=== PATIENT | female | born 1990 | race Caucasian/White ===

== ENCOUNTER 2024-03-07 00:05 | Inpatient (IN) | payer MEDICAID ==
[2024-03-07 04:04] LABS: BASOPHILS PERCENT AUTO 0.1 % (0.0-1.0); HEMATOCRIT 33.3 % (37.0-47.0); HEMOGLOBIN 10.8 g/dL (12.0-16.0); MEAN CORPUSCULAR HEMOGLOBIN 29.3 pg (27.0-34.0); MEAN CORPUSCULAR HGB CONC 32.4 g/dL (33.0-35.0); MEAN CORPUSCULAR VOLUME 90.5 fL (80-100); MONOCYTES PERCENT AUTO 6.7 % (2-8); NEUTROPHILS PERCENT AUTO 70.2 % (42.2-75.2); PLATELET COUNT,PLT 191 10^3/uL (150-450); RED BLOOD CELL COUNT 3.68 10^6/uL (4.2-5.4)
[2024-03-07] MEDS: Misoprostol 25 MCG (1/4 of 100 MCG) Tab VAG ONE (04:30)
[2024-03-07] MEDS ORDERED: Sodium Chloride 0.9% 10 ML Syringe FLUSH PRN (07:12)
[2024-03-07] MEDS ORDERED: Ondansetron 4 MG/2 ML SDV IVPUSH PRN (07:12)
[2024-03-07] MEDS ORDERED: fentaNYL 100 MCG/2 ML SDV IVPUSH PRN (07:12)
[2024-03-07] MEDS ORDERED: Methylergonovine 0.2 MG/1 ML Amp IM PRN (07:12)
[2024-03-07] MEDS ORDERED: Carboprost Tromethamine 250 MCG/1 ML Amp IM PRN (07:12)
[2024-03-07] MEDS ORDERED: Misoprostol 400 MCG (4 X 100 MCG TAB) RECTAL PRN (07:12)
[2024-03-07] MEDS ORDERED: Acetaminophen 325 MG Tab PO PRN (07:12)
[2024-03-07] MEDS ORDERED: Tranexamic Acid 1,000 MG in Sodium Chloride 0.9% 100 ML IV PRN (07:12)
[2024-03-07] MEDS ORDERED: Oxytocin/Normal Saline 30 UNIT/500 ML BAG IV SCH ×2 (07:15)
[2024-03-07 07:56] LABS: ALBUMIN 2.7 g/dL (3.4-5.0); ANION GAP 17.7 mEq/L (7-13); BILIRUBIN TOTAL 0.2 mg/dL (0.2-1.0); BUN/CREATININE RATIO 13.2 (No establ ref range); CALCIUM 8.7 mg/dL (8.5-10.1); CREATININE 0.68 mg/dL (0.55-1.02); EST CRCL DRUG DOSING (CG) 93.07 mL/min; POTASSIUM,K 3.7 mmol/L (3.5-5.1); PROTEIN TOTAL,TP 6.3 g/dL (6.4-8.2)
[2024-03-07 08:00] LABS: A/G RATIO 0.75
[2024-03-07 08:10] LABS: CREATININE,URINE RAND 115.54 mg/dL (No establ ref range); PROTEIN CREATININE RATIO,URINE 297.7 mg/g (<150.0); PROTEIN,URINE RANDOM 34.4 mg/dL (0.0-11.9)
[2024-03-07] MEDS: Lactated Ringers 1,000 ML IV SCH (08:25)
[2024-03-07] MEDS ORDERED: Ropivacaine 100 ML EPIDUR ONE (10:29)
[2024-03-07] MEDS ORDERED: Bupivacaine 0.25% 10 ML SDV NERVRT ONE (10:29)
[2024-03-07] MEDS ORDERED: Ketorolac 30 MG/ML SDV IVPUSH ONE (10:29)
[2024-03-07] MEDS ORDERED: Ondansetron 4 MG/2 ML SDV IV ONE (10:29)
[2024-03-07] MEDS ORDERED: fentaNYL 100 MCG/2 ML SDV EPIDUR ONE (10:29)
[2024-03-07] MEDS: Oxytocin/Normal Saline 30 UNIT/500 ML BAG IV SCH (12:22)
[2024-03-07] MEDS ORDERED: Bupivacaine 0.25% 10 ML SDV ONE (12:55)
[2024-03-07] MEDS ORDERED: fentaNYL 100 MCG/2 ML SDV ONE (12:55)
[2024-03-07] MEDS: Lactated Ringers 1,000 ML IV ONE (13:15)
[2024-03-07] MEDS ORDERED: Phenylephrine HCl In 0.9% NaCl 1 MG/10 ML Syringe IVPUSH PRN (13:21)
[2024-03-07] MEDS: ePHEDrine 50 MG/ML SDV IVPUSH PRN (13:28)
[2024-03-07] MEDS ORDERED: Ropivacaine 200 MG in Premix Bag 1 BAG EPIDUR SCH (13:30)
[2024-03-08] MEDS ORDERED: fentaNYL 100 MCG/2 ML SDV ONE (00:16)
[2024-03-08] MEDS ORDERED: Bupivacaine 0.25% 10 ML SDV ONE (00:16)
[2024-03-08] MEDS ORDERED: Acetaminophen 325 MG Tab PO PRN (07:41)
[2024-03-08] MEDS ORDERED: Sodium Chloride 0.9% 10 ML Syringe FLUSH PRN (07:41)
[2024-03-08] MEDS ORDERED: Tranexamic Acid 1,000 MG in Sodium Chloride 0.9% 100 ML IV PRN (07:41)
[2024-03-08] MEDS ORDERED: Oxytocin 10 Units/1 ML SDV IM PRN (07:41)
[2024-03-08] MEDS ORDERED: Carboprost Tromethamine 250 MCG/1 ML Amp IM PRN (07:41)
[2024-03-08] MEDS ORDERED: Misoprostol 400 MCG (4 X 100 MCG TAB) RECTAL PRN (07:41)
[2024-03-08] MEDS ORDERED: Simethicone 80 MG Tab.Chew PO PRN (07:41)
[2024-03-08] MEDS: Docusate Sodium 100 MG Cap PO PRN (08:21)
[2024-03-08] MEDS: Prenatal Multivitamin with Calcium/Folic Acid/Iron Tab PO SCH (08:22)
[2024-03-08] MEDS: Ibuprofen 800 MG Tab PO SCH (08:22)
[2024-03-08] MEDS: Benzocaine/Menthol 20%-0.5% Spray 78 GM Cannister TOP PRN (09:12)
[2024-03-08] MEDS: Witch Hazel Medicated Pads 100/Jar TOP PRN (09:13)
[2024-03-09] MEDS: Lidocaine 1% 30 ML SDV INJECT ONE (03:45)
== END 2024-03-09 10:30 | disposition home or self-care (01) | DRG 807 ==
LOC: DL.OB 00:05 → OBSVTOIN 21:34 → DL.OB 21:34
PROVIDERS: ADMIT Student in an Organized Health Care Education/Training Program; ATTEND Student in an Organized Health Care Education/Training Program
PROC: 10E0XZZ Delivery of Products of Conception, External Approach (ICD-10-PCS; principal; 2024-03-07)
PROC: 3E0R3BZ Introduction of Anesthetic Agent into Spinal Canal, Percutaneous Approach (ICD-10-PCS; 2024-03-07)
PROC: 00HU33Z Insertion of Infusion Device into Spinal Canal, Percutaneous Approach (ICD-10-PCS; 2024-03-07)
DX: O36.63X0 Maternal care for excessive fetal growth, third trimester, not applicable or unspecified (principal); Z37.0 Single live birth; O13.4 Gestational [pregnancy-induced] hypertension without significant proteinuria, complicating childbirth; Z3A.39 39 weeks gestation of pregnancy
CPT/HCPCS: 36415; 51702; 59025; 59409; 80053; 82570; 84156; 85025; A9270-GY; J0665; J1885; J2405; J2590; J2795; J3010; J3490; J7120